=== PATIENT | female | born 1950 | race Caucasian/White ===

== ENCOUNTER → 2016-12-12 | Outpatient (CLI) | payer MEDICARE, OTHER ==
[~2016-12-12] MED LIST: DCS100C PO; DOCU100T2 PO; IBP600T1 PO; IBUP-1773 PO; IBUP-65 PO; MELO7.5T46 PO; Simethicone PO
--- OUTSIDE RECORDS SUMMARY | 2016-12-12 08:44 | XMS REPORT | Continuity of Care Document ---
Author Author [facility] Organization [facility] Address Unknown Phone Unavailable Care Team Providers Care Development Lead Name Role Phone AMINTA MATTA MD PCP Insurance Providers Payer Name Policy Number Subscriber Name Relationship [employer] [id number] Cathleen Pena 18 Self / Same As Patient Enter Insurance Name [id number] Cathleen Pena 18 Self / Same As Patient Advance Directives Directive Response Recorded Date/Time Advance Directives No 04/04/16 9:15am Health Care Power of Customer Quality Specialist No 04/04/16 9:15am Organ Donor No 04/04/16 9:15am Resuscitation Status Full Code 04/04/16 9:15am Problems No problem information available. Medications Current Home Medications Medication Dose Units Route Directions Days/Qty Instructions Start Date Docusate Sodium 100 Mg 100 Mg Oral Twice A Day 04/02/16 Meloxicam 7.5 Mg 7.5 Mg Oral Daily 04/02/16 Past Home Medications Medication Directions Ordered Status Ibuprofen 200 Mg Tablet, 600 Mg Oral As Needed as needed for Pain 11/07/14 Discontinued [Simethicone] 80 Mg Chew, 40 Mg Oral Three Times A Day as needed for Indigestion 11/17/14 Discontinued Docusate Sodium 100 Mg Cap, 100 Mg Oral Twice A Day as needed for Constipation 11/17/14 Discontinued Ibuprofen 600 Mg Tab, 600 Mg Oral Every 6 Hours as needed for Pain 11/17/14 Discontinued Ibuprofen (Motrin) 600 Mg Tablet, 600 Mg Oral Every 6 Hours as needed for Pain 12/21/14 Discontinued Social History Social History Problem Response Recorded Date/Time Recent Foreign Travel No 04/04/2016 9:15am Smoking Status Never a Smoker 04/04/2016 9:10am Query Response Start Date Stop Date Smoking Status Never a Smoker Hospital Discharge Instructions No hospital discharge instructions. Plan of Care Discharge Date 04/04/16 11:26am Instructions/Education Provided COLONOSCOPY Prescriptions See Medication Section Functional Status No functional status results. Allergies, Adverse Reactions, Alerts Allergen Type Severity Reaction Status Last Updated Sulfa (Sulfonamide Antibiotics) ([id number]) Allergy Unknown Active Codeine Allergy Unknown CAUSES GALL BLADDER ATTACK SYMPTOMS Active Immunizations Name Given Type Date of Influenza Vaccine 08/01/14 Historical Vital Signs Acute Vital Signs Vital Response Date/Time Temperature (Fahrenheit) 97.0 degrees F (97.6 - 99.5) 04/04/2016 11:26am Temperature (Calculated Celsius) 36.69749 degrees C (36.4 - 37.5) 04/04/2016 11:26am Temperature Source Tympanic 04/04/2016 11:26am Pulse Rate (adult) 66 bpm (60 - 90) 04/04/2016 11:26am Respiratory Rate 16 bpm (12 - 24) 04/04/2016 11:26am O2 Sat by Pulse Oximetry 96 % (88 - 100) 04/04/2016 11:26am Blood Pressure 114/69 mm Hg 04/04/2016 11:26am Blood Pressure Mean 87 mm Hg 04/04/2016 9:05am Pain Pain Intensity 0 04/04/2016 11:26am Height (Feet) 5 feet 04/04/2016 9:15am Height (Inches) 2.00 inches 04/04/2016 9:15am Height (Calculated Centimeters) 157.824816 cm 04/04/2016 9:15am Weight (Pounds) 124 pounds 04/04/2016 9:15am Weight (Ounces) 0.0 oz 04/04/2016 9:15am Weight (Calculated Grams) 05855.454 gm 04/04/2016 9:15am Weight (Calculated Kilograms) 56.250822 kilograms 04/04/2016 9:15am Calculated BMI 22.7 04/04/2016 9:00am Results No known relevant diagnostic tests, laboratory data and/or discharge summary. Procedures Procedure Status Date Provider(s) Diagnostic colonoscopy Completed 04/04/16 AMINTA MATTA MD Encounters Encounter Location Arrival/Admit Date Discharge/Depart Date Attending Provider Departed [facility] 04/04/16 8:56am 11:26am AMINTA MATTA MD Departed Clinic [facility] 04/02/16 6:10am 04/02/16 2: 38pm AMINTA MATTA MD
--- NOTE | 2016-12-12 12:33 | Diagnostic Imaging Report ---
Right breast diagnostic mammogram. INDICATION: Architectural distortion in the upper outer aspect of the right breast. FINDINGS: Area of architectural distortion and dense asymmetry in the upper outer aspect of the right breast are again evaluated and appear less prominent compared to 06/13/2016, exam. This is an area of prior surgery and is likely related to scarring. No adverse development. IMPRESSION: Less prominent architectural distortion and increased density in the upper outer aspect of the right breast probably related to postsurgical scarring. Another followup when the patient is due for her bilateral mammogram in May 2017 is recommended. ACR BI-RADS Category 3: Probably benign findings. Result letter will be mailed to the patient. Note: At least 10% of breast cancer is not imaged by mammography. Dictated by: Dictated on workstation # [id number]
== END ==
LOC: RAD 08:39
PROVIDERS: ATTEND Obstetrics & Gynecology
DX: R92.8 Other abnormal and inconclusive findings on diagnostic imaging of breast (principal)

== ENCOUNTER → 2017-03-05 | Outpatient (CLI) | payer MEDICARE, OTHER ==
--- NOTE | 2017-03-05 15:24 | Diagnostic Imaging Report ---
EXAMINATION: DEXA scan. INDICATION: Osteopenia. TECHNIQUE: Bone mineral density estimated based on dual energy radiography over the lumbar spine and femoral necks, was performed. FINDINGS: The lumbar spine T-score is -2.5. T score in the left femoral neck is -2.7 and on the right side is -2.8. IMPRESSION: Osteoporosis. Dictated by: Dictated on workstation # [id number]
== END ==
LOC: RAD 09:48
PROVIDERS: ATTEND Obstetrics & Gynecology
DX: M81.0 Age-related osteoporosis without current pathological fracture (principal)
CPT/HCPCS: 77080

== ENCOUNTER → 2017-06-19 | Outpatient (CLI) | payer MEDICARE, OTHER ==
--- NOTE | 2017-06-20 09:55 | Diagnostic Imaging Report ---
INDICATION: Digital mammogram bilateral diagnostic. INDICATION: Followup exam This study was compared to prior exams of 12/12/16, 06/13/16, 12/06/15, 06/06/15 and 12/04/14. At this time there are no current complaints. The current study was also evaluated with a Computer Aided Detection (CAD) system. The previous studies have shown architectural distortion in the right breast in the area of the patient's prior biopsy. On this study the scar formation in this area does seem somewhat less prominent than on the prior exam. The fibroglandular tissue in both breasts is heterogeneously dense. This does limit the sensitivity of this exam. There is no primary or secondary sign of malignancy noted. The tomographic views also fail to show any sign of malignancy. IMPRESSION: The architectural distortion in the upper-outer aspect of the right breast seen previously is less conspicuous on this exam. There is no primary or secondary sign of malignancy involving either breast. ACR BI-RADS Category 1: Negative. Result letter will be mailed to the patient. Note: At least 10% of breast cancer is not imaged by mammography. Dictated by: Dictated on workstation # [id number]
== END ==
LOC: RAD 09:10
PROVIDERS: ATTEND Obstetrics & Gynecology
DX: N63 Unspecified lump in breast (principal)
CPT/HCPCS: 77066

== ENCOUNTER → 2018-04-12 | Outpatient (CLI) | payer MEDICARE, OTHER ==
--- NOTE | 2018-04-12 12:10 | Diagnostic Imaging Report ---
CLINICAL INDICATION: Pain Three views were obtained. FINDINGS: There is a slightly depressed fracture of the radial head. There is an elbow joint effusion. There is no other fracture or dislocation. IMPRESSION: Slightly depressed fracture of the radial head with an elbow joint effusion. Dictated by: Dictated on workstation # [id number]
--- NOTE | 2018-04-12 12:11 | Diagnostic Imaging Report ---
INDICATION: Elbow pain. FINDINGS: There is a slightly depressed fracture of the radial head. There is no other fracture or dislocation. There is a joint effusion. Soft tissues are unremarkable. IMPRESSION: Slightly depressed fracture of the radial head Dictated by: Dictated on workstation # [id number]
== END ==
LOC: RAD 11:06
PROVIDERS: ATTEND Internal Medicine
DX: S52.122A Displaced fracture of head of left radius, initial encounter for closed fracture (principal)
CPT/HCPCS: 73080; 73090

== ENCOUNTER → 2018-06-25 | Outpatient (CLI) | payer MEDICARE, OTHER ==
--- NOTE | 2018-06-29 12:21 | Diagnostic Imaging Report ---
INDICATION: Routine screening. COMPARISON: 06/19/2017 and 06/13/2016. TECHNIQUE: 2D and 3D bilateral screening mammography was performed with CAD. FINDINGS: Scattered fibroglandular densities are noted bilaterally. The overall parenchymal pattern is stable. An area of previous biopsy in the upper-outer right breast is stable. There are benign calcifications. No new mass or malignant-appearing microcalcifications are seen. The axillae are unremarkable. IMPRESSION: No mammographic features suspicious for malignancy are identified. ACR BI-RADS Category 2: Benign findings. Result letter will be mailed to the patient. Note: At least 10% of breast cancer is not imaged by mammography. Dictated by: Dictated on workstation # [id number]
== END ==
LOC: RAD 10:54
PROVIDERS: ATTEND Obstetrics & Gynecology
DX: Z12.31 Encounter for screening mammogram for malignant neoplasm of breast (principal)
CPT/HCPCS: 77067

== ENCOUNTER → 2019-05-03 | Outpatient (CLI) | payer MEDICARE, OTHER ==
--- NOTE | 2019-05-03 16:04 | Diagnostic Imaging Report ---
INDICATION: Postmenopausal state, followup osteoporosis. COMPARISON: March 05, 2017. FINDINGS: AP Spine L1-L4: [BMD (g/cm2): 0.880] [T-Score: -2.7] [Z-Score: -0.8] [BMD Previous: 0.898] [BMD % Change: -2.0] LT Hip Neck: [BMD (g/cm2): 0.816] [T-Score: -1.6] [Z-Score: 0.2] LT Hip Total: [BMD (g/cm2):0.698] [T-Score:-2.5] [Z-Score: -0.8] [BMD Previous: 0.673] [BMD % Change: 3.7] RT Hip Neck: [BMD (g/cm2):0.713] [T-Score:-2.3] [Z-Score:-0.5] RT Hip Total: [BMD (g/cm2):0.676] [T-score:-2.6] [Z-Score:-1.0] [BMD Previous:0.650] [BMD % Change:4.0] *Indicates significant change from prior examination based on 95% confidence level. World Health Organization criteria for BMD interpretation classify patients as Normal (T-score at or above -1.0), Osteopenic (T-score between -1.0 and -2.5) or Osteoporotic (T-score at or below -2.5). LIMITATIONS AND MODIFICATION: None. FRACTURE RISK (FRAX SCORE): The ten year probability of (%): Major Osteoporotic Fracture: [N/A] Hip Fracture: [N/A] IMPRESSION: 1. Osteoporosis. 2. No significant change in bone mineral density since prior examination. 3. See below National Osteoporosis Foundation guidelines on when to potentially initiate pharmacologic therapy. Based on the National Osteoporosis Foundation Guidelines, pharmacologic treatment should be initiated in any of the following, unless clinical conditions suggest otherwise: * Any patient with prior fragility fracture of the hip or vertebrae. A spine fracture indicates 5X risk for subsequent spine fracture and 2X risk for subsequent hip fracture. * Osteoporosis (T-score <-2.5). * Postmenopausal women and men age 50 and older with low bone mass/osteopenia (T-score between -1.0 and -2.5) by DXA and 10-year major osteoporotic fracture greater than 20% or a 10-year probability of hip fracture greater than 3%. These fracture risks are supplied above in the FRAX score, if applicable. * Clinician judgement and/or patient preferences may indicate treatment for people with 10-year fracture probabilities above or below these levels. Dictated by: Dictated on workstation # [id number]
== END ==
LOC: RAD 11:19
PROVIDERS: ATTEND Internal Medicine
DX: M81.0 Age-related osteoporosis without current pathological fracture (principal); Z78.0 Asymptomatic menopausal state
CPT/HCPCS: 77080

== ENCOUNTER → 2019-06-28 | Outpatient (CLI) | payer MEDICARE, OTHER ==
--- NOTE | 2019-06-28 13:18 | Diagnostic Imaging Report ---
INDICATION: Routine screening. COMPARISON: 06/25/2018 and 06/19/2017. TECHNIQUE: 2D and 3D bilateral screening mammography was performed with CAD. FINDINGS: Scattered fibroglandular densities are again noted bilaterally. Benign calcifications are noted bilaterally. No dominant mass or malignant appearing microcalcifications are seen. The axillae are unremarkable. IMPRESSION: No mammographic features suspicious for malignancy are identified. ACR BI-RADS Category 2: Benign findings. Result letter will be mailed to the patient. Note: At least 10% of breast cancer is not imaged by mammography. Dictated by: Dictated on workstation # [id number]
== END ==
LOC: RAD 10:54
PROVIDERS: ATTEND Obstetrics & Gynecology
DX: Z12.31 Encounter for screening mammogram for malignant neoplasm of breast (principal)
CPT/HCPCS: 77067

== ENCOUNTER → 2021-05-28 | Outpatient (CLI) | payer MEDICARE, OTHER ==
--- NOTE | 2021-05-28 13:54 | Diagnostic Imaging Report ---
INDICATION: Routine screening. COMPARISON: 06/28/2019 and 06/25/2018. TECHNIQUE: 2D and 3D bilateral screening mammography was performed with CAD. FINDINGS: Scattered fibroglandular densities are identified bilaterally. There are scattered benign calcifications. No spiculated mass or malignant-appearing microcalcifications are seen. The axillae are unremarkable. IMPRESSION: No mammographic features suspicious for malignancy are identified. ACR BI-RADS Category 2: Benign findings. Result letter will be mailed to the patient. Note: At least 10% of breast cancer is not imaged by mammography. Dictated by: Dictated on workstation # [id number]
== END ==
LOC: RAD 10:37
PROVIDERS: ATTEND Obstetrics & Gynecology
DX: Z12.31 Encounter for screening mammogram for malignant neoplasm of breast (principal)
CPT/HCPCS: 77063; 77067

== ENCOUNTER → 2021-08-27 | Outpatient (CLI) | payer MEDICARE, OTHER ==
--- NOTE | 2021-08-27 11:11 | Diagnostic Imaging Report ---
INDICATION: Postmenopausal female. COMPARISON: 05/03/2019. FINDINGS: AP Spine L2-L4: [BMD (g/cm2): 0.828] [T-Score: -3.1] [Z-Score: -1.0] [BMD Previous: 0.880] [BMD % Change: -5.9] LT Hip Neck: [BMD (g/cm2): 0.847] [T-Score: -1.4] [Z-Score: 0.7] LT Hip Total: [BMD (g/cm2):0.706] [T-Score:-2.4] [Z-Score: -0.5] [BMD Previous: 0.689] [BMD % Change: 3.7] RT Hip Neck: [BMD (g/cm2):0.720] [T-Score:-2.3] [Z-Score:-0.3] RT Hip Total: [BMD (g/cm2):0.647] [T-score:-2.9] [Z-Score:-1.0] [BMD Previous:0.676] [BMD % Change:-4.0] *Indicates significant change from prior examination based on 95% confidence level. World Health Organization criteria for BMD interpretation classify patients as Normal (T-score at or above -1.0), Osteopenic (T-score between -1.0 and -2.5) or Osteoporotic (T-score at or below -2.5). LIMITATIONS AND MODIFICATION: Evaluation of the lumbar spine is suboptimal due to scoliosis and degenerative change. FRACTURE RISK (FRAX SCORE): The ten year probability of (%): Major Osteoporotic Fracture: [NA, osteoporosis] Hip Fracture: [NA] IMPRESSION: 1. Osteoporosis. 2. Mixed changes with statistically significant decreases in bone density in the lumbar spine and right hip. 3. See below National Osteoporosis Foundation guidelines on when to potentially initiate pharmacologic therapy. Based on the National Osteoporosis Foundation Guidelines, pharmacologic treatment should be initiated in any of the following, unless clinical conditions suggest otherwise: * Any patient with prior fragility fracture of the hip or vertebrae. A spine fracture indicates 5X risk for subsequent spine fracture and 2X risk for subsequent hip fracture. * Osteoporosis (T-score <-2.5). * Postmenopausal women and men age 50 and older with low bone mass/osteopenia (T-score between -1.0 and -2.5) by DXA and 10-year major osteoporotic fracture greater than 20% or a 10-year probability of hip fracture greater than 3%. These fracture risks are supplied above in the FRAX score, if applicable. * Clinician judgement and/or patient preferences may indicate treatment for people with 10-year fracture probabilities above or below these levels. Dictated by: Dictated on workstation # [id number]
== END ==
LOC: RAD 09:01
PROVIDERS: ATTEND Internal Medicine
DX: M81.0 Age-related osteoporosis without current pathological fracture (principal); Z78.0 Asymptomatic menopausal state
CPT/HCPCS: 77080

== ENCOUNTER → 2022-06-12 | Outpatient (CLI) | payer MEDICARE, OTHER ==
--- NOTE | 2022-06-12 14:23 | Diagnostic Imaging Report ---
Indication: Routine screening. Comparison is made with prior mammogram 05/28/2021 and 06/28/2019. 2-D and 3-D bilateral screening mammography was performed with CAD. Scattered fibroglandular densities are identified bilaterally. The parenchymal pattern is stable. No mass or malignant-appearing microcalcifications are seen. There are occasional benign calcifications. Axillae are unremarkable. IMPRESSION: BI-RADS Category 2 No mammographic features suspicious for malignancy are identified. ACR BI-RADS Category 2: Benign findings. Result letter will be mailed to the patient. Note: At least 10% of breast cancer is not imaged by mammography. Dictated by: Dictated on workstation # [id number]
== END ==
LOC: RAD 10:26
PROVIDERS: ATTEND Obstetrics & Gynecology
DX: Z12.31 Encounter for screening mammogram for malignant neoplasm of breast (principal)
CPT/HCPCS: 77063; 77067

== ENCOUNTER → 2023-06-15 | Outpatient (CLI) | payer MEDICARE, OTHER ==
--- NOTE | 2023-06-15 20:13 | Diagnostic Imaging Report ---
Indication: Routine screening. Comparison is made with prior mammograms from 06/11/2022 and 05/28/2021. 2-D and 3-D bilateral screening mammography was performed with CAD. Scattered fibroglandular densities are identified bilaterally. The parenchymal pattern is stable. No mass or malignant-appearing microcalcifications are seen. There are benign calcifications. Axillae are unremarkable. IMPRESSION: BI-RADS Category 2 No mammographic features suspicious for malignancy are identified. ACR BI-RADS Category 2: Benign findings. Result letter will be mailed to the patient. Note: At least 10% of breast cancer is not imaged by mammography. Dictated by: Dictated on workstation # [id number]
== END ==
LOC: RAD 13:19
PROVIDERS: ATTEND Nurse Practitioner Women's Health
DX: Z12.31 Encounter for screening mammogram for malignant neoplasm of breast (principal)
CPT/HCPCS: 77063; 77067